=== PATIENT | female | born 1985 | race American Indian/Alaskan Native ===

== ENCOUNTER 2017-02-27 07:20 | Emergency (ER) | payer SELFPAY ==
[2017-02-27 07:34] VITALS: BP 111/69
--- NOTE | 2017-02-27 08:34 | Emergency Department Report ---
Vomiting/Diarrhea - HPI Chief Complaint: Upper Respiratory Infection Stated Complaint: FLU SYMPTOMS Time Seen by Provider: 02/27/17 08:24 Duration: 3 Days Severity: moderate Nausea/Vomiting Severity: Mild Diarrhea Severity: Mild Pain Location: Other (none) Pain Severity: None Symptoms: Yes Watery Diarrhea, Yes Fever, Yes Able to Tolerate Fluids, Yes Recent URI Symptoms, No Bloody diarrhea, No Recent Unusual Foods, No Recent Untreated Water, No Recent use of Antibiotics, No Family w/ Similar Symptoms, No Contacts w/ Similar Symptoms, No Rash, No Hematuria Other History: Pt reports flu like sx of n/v/d, cough, congestion, myalgias x 3 days. Reports n/v has nearly resolved. No abdominal pain. No UTI sx. Reports fever with Tmax 102 a couple days ago. ED Review of Systems ROS: Stated complaint: FLU SYMPTOMS Other details as noted in HPI Comment: All other systems reviewed and negative Constitutional: chills, fever Eyes: denies: eye pain, eye discharge, vision change ENT: congestion. denies: ear pain, throat pain Respiratory: cough. denies: shortness of breath, wheezing Cardiovascular: denies: chest pain, palpitations Endocrine: no symptoms reported Gastrointestinal: nausea, vomiting, diarrhea. denies: abdominal pain Genitourinary: denies: urgency, dysuria, discharge Musculoskeletal: myalgia. denies: back pain, joint swelling, arthralgia Skin: denies: rash, lesions Neurological: denies: headache, weakness, paresthesias Psychiatric: denies: anxiety, depression Hematological/Lymphatic: denies: easy bleeding, easy bruising ED Past Medical Hx - Past Medical History Previous Medical History?: No - Surgical History Past Surgical History?: Yes Additional Surgical History: C section - Social History Smoking Status: Current Every Day Smoker Substance Use Type: None - Medications Home Medications: Home Medications Medication Instructions Recorded Confirmed Last Taken Type Azithromycin [Zithromax] 250 mg PO DAILY #6 tablet 02/27/17 Unknown Rx Ibuprofen [Motrin] 600 mg PO Q8H PRN #15 tablet 02/27/17 Unknown Rx Ondansetron [Zofran Odt] 4 mg PO QID PRN #12 tab.rapdis 02/27/17 Unknown Rx Oseltamivir [Tamiflu] 75 mg PO BID #10 cap 02/27/17 Unknown Rx Vomiting Diarrhea Exam - Exam General: Vital signs noted. No distress. Alert and acting appropriately. HEENT: Yes Moist Mucous Membranes, Yes Rhinorrhea, No Pharyngeal Erythema, No Pharyngeal Exudates, No Conjuctival Injection, No Frontal Tenderness, No Maxillary Tenderness (+ congestion) Neck: No Adenopathy, No Rigidity Lungs: Yes Clear Lung Sounds, Yes Good Air Exchange, Yes Cough, No Wheezes, No Stridor, No Nasal Flaring, No Retractions, No Use of Accessory Muscles Heart exam: Regular: Yes, Murmur: No, Tachycardia: No Abdomen: Tenderness: No, Peritoneal Signs: No, Distention: No, Hyperactive Bowel sounds: No Skin exam: Rash: No, Edema: No, Normal turgor: Yes Neurologic: Alert and oriented, no deficits. Musculoskeletal: Unremarkable. ED Course Vital Signs 02/27/17 07:31 Temperature 98.1 F Pulse Rate 87 Respiratory 16 Rate Blood Pressure 111/69 O2 Sat by Pulse 99 Oximetry - Reevaluation(s) Reevaluation #1: 02/27/17 09:50 Pt resting comfortably. No n/v. VSS. Pt is in NAD and stable for d/c. ED Medical Decision Making - Lab Data Rapid flu negative. - Medical Decision Making Pt has constellation of symptoms suggestive of influenza or other viral process. Will RX Tamiflu as well as Zithromax for unresolving URI symptoms. Supportive care with Motrin, rest, fluids discussed. Pt able to tolerate PO at this time. As symptoms are improving, further evaluation is felt unnecessary at this time. - Differential Diagnosis influenza/viral syndrome, PNA, sinusitis Critical care attestation.: If time is entered above; I have spent that time in minutes in the direct care of this critically ill patient, excluding procedure time. ED Disposition Clinical Impression: Flu-like symptoms Disposition: DC-01 TO HOME OR SELFCARE Is pt being admited?: No Condition: Good Instructions: Influenza (ED) Prescriptions: Azithromycin [Zithromax] 250 mg PO DAILY #6 tablet Ibuprofen [Motrin] 600 mg PO Q8H PRN #15 tablet PRN Reason: Pain Ondansetron [Zofran Odt] 4 mg PO QID PRN #12 tab.rapdis PRN Reason: Nausea And Vomiting Oseltamivir [Tamiflu] 75 mg PO BID #10 cap Referrals: DANA DINH MD [Staff Physician] - 2-3 Days Forms: Work/School Release Form(ED) Time of Disposition: 09:52
== END 2017-02-27 10:04 | disposition home or self-care (01) ==
LOC: ED 07:20
DX: J11.1 Influenza due to unidentified influenza virus with other respiratory manifestations (principal); F17.200 Nicotine dependence, unspecified, uncomplicated
CPT/HCPCS: 87400; 99282

== ENCOUNTER 2018-11-22 18:46 | Emergency (ER) | payer SELFPAY ==
--- NOTE | 2018-11-22 19:15 | Event Note ---
ED Screening Note Date of service: 11/22/18 Time: 18:56 ED Screening Note: 33 y/o female comes in for having a syncope episode after she started having heavy bleeding went to stand up to get a towel and passed out and hit her chin and lip laceration. LMP was 10/29/18. . This initial assessment/diagnostic orders/clinical plan/treatment(s) is/are subject to change based on patients health status, clinical progression and re- assessment by fellow clinical providers in the ED. Further treatment and workup at subsequent clinical providers discretion. Patient/guardian urged not to elope from the ED as their condition may be serious if not clinically assessed and managed. Initial orders include:
[2018-11-22 19:40] LABS: Basophils % (Auto) 0.5 % (0.0-1.8); Eosinophils % (Auto) 0.4 % (0.0-4.3); Hemoglobin 14.2 gm/dl (10.1-14.3); Lymphocytes # (Auto) 1.2 K/mm3 (1.2-5.4); Lymphocytes % (Auto) 18.5 % (13.4-35.0); Mean Corpuscular HGB Conc 34 % (30-34); Mean Corpuscular Volume 89 fl (79-97); Monocytes # (Auto) 0.5 K/mm3 (0.0-0.8); Monocytes % (Auto) 7.9 % (0.0-7.3); Platelet Count 241 K/mm3 (140-440); Red Blood Count 4.73 M/mm3 (3.65-5.03)
[2018-11-22 19:51] LABS: BUN/Creatinine Ratio 8; Blood Urea Nitrogen 5 mg/dL (7-17)
[2018-11-22 19:52] LABS: Alanine Aminotransferase 13 units/L (7-56); Albumin 4.2 g/dL (3.9-5); Calcium 9.2 mg/dL (8.4-10.2); Hemolysis Index 36
[2018-11-22] MEDS ORDERED: DILAUDID IV ONE ×2 (19:53→21:56)
--- NOTE | 2018-11-22 19:53 | Emergency Department Report ---
ED Syncope HPI - General Chief Complaint: Syncope Stated Complaint: BLACKOUT/JAW PAIN Time Seen by Provider: 11/22/18 19:49 Source: patient Exam Limitations: no limitations - History of Present Illness Initial Comments: Patient is a 33-year-old female that presents emergency room for syncopal episode. Patient states that she began having her period today and her period was heavy and after she stood up she became lightheaded and passed out. Patient states she didn't hit her chin and mouth on a wall. Patient states her loss of consciousness was brief. Patient states he was witnessed by her family. Patient states that she is now having extreme jaw and chin pain. Patient states her pain is 10/10. Patient states her pain is better with rest and worse with talking and movement. Patient states she's having difficulty talking due to the pain. Patient denies headache. Patient denies blurry vision at this time. Patient states prior to passing out she became lightheaded but that symptom has resolved. Patient states she still having heavy vaginal bleeding. Last Tetanus 2 yrs ago Timing/Prior Episodes: single episode today Precipitating Factors: Positive: lightheadedness Context: standing Loss of Consciousness: brief (seconds) Current Symptoms: back to normal - Related Data Allergies/Adverse Reactions: Allergies No Known Allergies Allergy (Unverified 02/27/17 07:34) Home Medications: Ambulatory Orders Azithromycin [Zithromax] 250 mg PO DAILY #6 tablet 02/27/17 Ibuprofen [Motrin] 600 mg PO Q8H PRN #15 tablet 02/27/17 Ondansetron [Zofran Odt] 4 mg PO QID PRN #12 tab.rapdis 02/27/17 Oseltamivir [Tamiflu] 75 mg PO BID #10 cap 02/27/17 ED Review of Systems ROS: Stated complaint: BLACKOUT/JAW PAIN Other details as noted in HPI Constitutional: denies: chills, fever Eyes: denies: eye pain, eye discharge, vision change ENT: denies: ear pain, throat pain Respiratory: denies: cough, shortness of breath, wheezing Cardiovascular: denies: chest pain, palpitations Endocrine: no symptoms reported Gastrointestinal: denies: abdominal pain, nausea, diarrhea Genitourinary: denies: urgency, dysuria, discharge Musculoskeletal: denies: back pain, joint swelling, arthralgia Skin: denies: rash, lesions Neurological: denies: headache, weakness, paresthesias Psychiatric: denies: anxiety, depression Hematological/Lymphatic: denies: easy bleeding, easy bruising ED Past Medical Hx - Past Medical History Previous Medical History?: No - Surgical History Past Surgical History?: Yes Additional Surgical History: C section - Family History Family history: no significant - Social History Smoking Status: Never Smoker Substance Use Type: Marijuana - Medications Home Medications: Home Medications Medication Instructions Recorded Confirmed Last Taken Type Azithromycin [Zithromax] 250 mg PO DAILY #6 tablet 02/27/17 Unknown Rx Ibuprofen [Motrin] 600 mg PO Q8H PRN #15 tablet 02/27/17 Unknown Rx Ondansetron [Zofran Odt] 4 mg PO QID PRN #12 tab.rapdis 02/27/17 Unknown Rx Oseltamivir [Tamiflu] 75 mg PO BID #10 cap 02/27/17 Unknown Rx ED Physical Exam - General Limitations: No Limitations General appearance: alert, in no apparent distress - Head Head exam: Present: atraumatic, normocephalic - Eye Eye exam: Present: normal appearance, PERRL Pupils: Present: normal accommodation - ENT ENT exam: Present: mucous membranes moist, other (lip abrasion and 1 cm chin laceration. Left-sided jaw tenderness to palpation. Patient complains of pain with talking) - Neck Neck exam: Present: normal inspection, full ROM. Absent: tenderness, meningismus - Respiratory Respiratory exam: Present: normal lung sounds bilaterally. Absent: respiratory distress, wheezes, rales - Cardiovascular Cardiovascular Exam: Present: regular rate, normal rhythm. Absent: systolic murmur, diastolic murmur, rubs, gallop - GI/Abdominal GI/Abdominal exam: Present: soft, normal bowel sounds - Extremities Exam Extremities exam: Present: normal inspection - Back Exam Back exam: Present: normal inspection - Neurological Exam Neurological exam: Present: alert, oriented X3 - Psychiatric Psychiatric exam: Present: normal affect, normal mood - Skin Skin exam: Present: warm, dry, intact, normal color. Absent: rash ED Course Vital Signs 11/22/18 11/22/18 11/22/18 18:58 20:00 20:01 Temperature 99.6 F 100.4 F H Pulse Rate 80 70 Respiratory 18 16 16 Rate Blood Pressure 108/75 Blood Pressure 110/71 [Left] O2 Sat by Pulse 96 99 99 Oximetry 11/22/18 11/22/18 11/22/18 22:03 22:20 23:15 Temperature 99.3 F Pulse Rate 66 60 Respiratory 16 16 Rate Blood Pressure Blood Pressure 113/73 108/75 [Left] O2 Sat by Pulse 100 97 Oximetry - Reevaluation(s) Reevaluation #1: I discussed the results of patient. Patient states she still having pain. Patient will be given Dilaudid. 11/22/18 21:57 I discussed all results and plan of care with patient. Patient agrees with plan of care and transfer. Patient will be transferred to [place] trauma ER to ER. 11/22/18 22:12 - Consultations Consultation #1: [facility] [facility] trauma consult 11/22/18 21:57 Patient has been accepted by Dr. Erika Cooley for ER to ER transfer. Patient will be transferred via ground EMS to [place]. 11/22/18 22:10 ED Medical Decision Making - Lab Data Result diagrams: 11/22/18 19:05 11/22/18 19:05 - Radiology Data Radiology results: report reviewed CT scan of the maxillofacial region: HISTORY: Fell down; syncope; jaw pain; facial laceration COMPARISON: None. TECHNIQUE: Axial images of the face were obtained. Coronal and sagittal reformats were generated. CONTRAST: None. FINDINGS: This is an abnormal CT scan. There are 2 fractures. One fracture is in the left ramus of the mandible below the condyle. Slight medial angulation is seen. Second fracture is seen in the left mandibular body. Fracture is sparing the medial to left mandibular canal. Right mandible and right condylar head normal. Facial bones: Midface is normal. Zygomaticomaxillary complex normal. Paranasal sinuses: Clear. Orbits: No significant abnormality. Visualized images of the intracranial space: No significant abnormality. Please note the in the head CT scan, I was concerned about the pituitary gland. In these images, pituitary gland appears normal. Additional findings: None. IMPRESSION: Shoulders (2) in the left side of the mandible; at the ramus of the mandible on the left side below the condylar head with the medial angulation; nondisplaced fracture in the body of the mandible on the left side anteriorly Nonenhanced CT scan of the brain: INDICATION: Fell down; syncope; facial laceration TECHNIQUE: Routine CT head without contrast. Sagittal and coronal reformatted images were obtained. All CT scans at this location are performed using CT dose reduction for ALARA by means of automated exposure control. COMPARISON: None. FINDINGS: BRAIN / INTRACRANIAL CONTENTS: I do not see intracranial sequela from the trauma. No acute hemorrhage, mass effect, midline shift, hydrocephalus, or acute, large territorial infarct. Considering the age, height convexity cortical sulci are prominent suggesting mild involution. 40 of the cerebellar vermis are also prominent. Normal brain volume and ventricular/sulcal size for age. No significant white matter abnormality. CRANIOCERVICAL JUNCTION: No significant abnormality. ORBITS: No significant abnormality of visualized orbits. SINUSES / MASTOIDS: No significant abnormality of the visualized paranasal sinuses or mastoid air cells. ADDITIONAL FINDINGS: Pituitary gland appears slightly prominent. It is not displacing the optic chiasm. This could be evaluated as an outpatient. IMPRESSION: I do not see intracranial sequela from the trauma. - Medical Decision Making Patient is a 33-year-old female that presents for syncopal episode and jaw pain after patient having a large vaginal hemorrhage.. Patient had a CT of the head done and was negative. Patient had a CT of the facial bones and shows 2 mandibular fractures. Patient we transferred to [facility] for further evaluation and treatment. Patient will have a second IV placed prior to transf er. Patient also be given Ancef since she has an open fracture due to a small laceration to the inferior aspect of the chin. Patient stable for transfer. - Differential Diagnosis jaw pain. Vaginal bleeding. Syncope. trauma. Jaw fracture Critical Care Time: Yes Critical care attestation.: If time is entered above; I have spent that time in minutes in the direct care of this critically ill patient, excluding procedure time. Critical Care Time: 45 MINUTES ED Disposition Clinical Impression: Jaw pain, Syncope and collapse, Vagina bleeding Mandible fracture Qualifiers: Encounter type: initial encounter Fracture type: open Mandible location: ramus Laterality: left Qualified Code(s): S02.642B - Fracture of ramus of left mandible, initial encounter for open fracture Lip abrasion Qualifiers: Encounter type: initial encounter Qualified Code(s): S00.511A - Abrasion of lip, initial encounter Chin laceration Qualifiers: Encounter type: initial encounter Qualified Code(s): S01.81XA - Laceration without foreign body of other part of head, initial encounter Disposition: DC/TX-70 ANOTHER TYPE HLTHCARE Is pt being admited?: No Does the pt Need Aspirin: No Condition: Critical Instructions: Syncope (ED) Time of Disposition: 22:18
--- NOTE | 2018-11-22 21:23 | Cat Scan Report ---
Nonenhanced CT scan of the brain: INDICATION: Fell down; syncope; facial laceration TECHNIQUE: Routine CT head without contrast. Sagittal and coronal reformatted images were obtained. A ll CT scans at this location are performed using CT dose reduction for ALARA by means of automated ex posure control. COMPARISON: None. FINDINGS: BRAIN / INTRACRANIAL CONTENTS: I do not see intracranial sequela from the trauma. No acute hemorrhage , mass effect, midline shift, hydrocephalus, or acute, large territorial infarct. Considering the age , height convexity cortical sulci are prominent suggesting mild involution. 40 of the cerebellar verm is are also prominent. Normal brain volume and ventricular/sulcal size for age. No significant white matter abnormality. CRANIOCERVICAL JUNCTION: No significant abnormality. ORBITS: No significant abnormality of visualized orbits. SINUSES / MASTOIDS: No significant abnormality of the visualized paranasal sinuses or mastoid air jones ls. ADDITIONAL FINDINGS: Pituitary gland appears slightly prominent. It is not displacing the optic chias m. This could be evaluated as an outpatient. IMPRESSION: I do not see intracranial sequela from the trauma. Signer Name: Marko Wasserman MD Signed: 11/22/2018 9:19 PM Workstation Name: [id number]
--- NOTE | 2018-11-22 21:36 | Cat Scan Report ---
CT scan of the maxillofacial region: HISTORY: Fell down; syncope; jaw pain; facial laceration COMPARISON: None. TECHNIQUE: Axial images of the face were obtained. Coronal and sagittal reformats were generated. CONTRAST: None. FINDINGS: This is an abnormal CT scan. There are 2 fractures. One fracture is in the left ramus of the mandible below the condyle. Slight me dial angulation is seen. Second fracture is seen in the left mandibular body. Fracture is sparing the medial to left mandibular canal. Right mandible and right condylar head normal. Facial bones: Midface is normal. Zygomaticomaxillary complex normal. Paranasal sinuses: Clear. Orbits: No significant abnormality. Visualized images of the intracranial space: No significant abnormality. Please note the in the head CT scan, I was concerned about the pituitary gland. In these images, pituitary gland appears normal. Additional findings: None. IMPRESSION: Shoulders (2) in the left side of the mandible; at the ramus of the mandible on the left side below t he condylar head with the medial angulation; nondisplaced fracture in the body of the mandible on the left side anteriorly Signer Name: Marko Wasserman MD Signed: 11/22/2018 9:31 PM Workstation Name: [id number]
[2018-11-22] MEDS ORDERED: ceFAZolin 2 GM in NACL 0.9% 100 ML IV ONE (23:00)
[2018-11-22 23:15] VITALS: BP 108/75
== END 2018-11-22 23:50 | disposition other institution (70) ==
LOC: ED 18:46
DX: S02.642B Fracture of ramus of left mandible, initial encounter for open fracture (principal); S00.511A Abrasion of lip, initial encounter; S01.81XA Laceration without foreign body of other part of head, initial encounter; R55 Syncope and collapse; N93.9 Abnormal uterine and vaginal bleeding, unspecified; F12.10 Cannabis abuse, uncomplicated; W18.30XA Fall on same level, unspecified, initial encounter; Y93.89 Activity, other specified; Y92.89 Other specified places as the place of occurrence of the external cause; Y99.8 Other external cause status
CPT/HCPCS: 36415; 70450; 70486; 80053; 84702; 85025; 96365; 96375; 96376; 99291; J0690; J1170

== ENCOUNTER 2020-12-01 23:04 | Emergency (ER) | payer SELFPAY | END 2020-12-02 04:42 | disposition left against medical advice (07) | LOC: ED 23:04 | DX: J11.1 Influenza due to unidentified influenza virus with other respiratory manifestations (principal); Z53.21 Procedure and treatment not carried out due to patient leaving prior to being seen by health care provider ==